=== PATIENT | male | born 1965 | race Caucasian/White ===

== ENCOUNTER 2021-10-18 14:14 | Outpatient (CLI) | payer BC ==
[2021-10-18 22:29] LABS: SARS-CoV-2 PCR by NAA Not Detected (NotDetected)
== END 2021-10-18 14:15 | disposition home or self-care (01) ==
LOC: LABBT 14:14
PROVIDERS: ATTEND Urology
DX: Z01.812 Encounter for preprocedural laboratory examination (principal); Z20.822 Contact with and (suspected) exposure to COVID-19; N20.2 Calculus of kidney with calculus of ureter
CPT/HCPCS: U0003; U0005

== ENCOUNTER 2021-10-19 09:19 | Day surgery (SDC) | payer BC ==
[2021-10-18 14:03] VITALS: BMI 32.5
[2021-10-19] MEDS ORDERED: Levofloxacin 500 mg/D5W 100 ml Premix Bag ONE (09:38)
[2021-10-19] MEDS ORDERED: Iothalamate Meglumine 60% 50 ML VIAL FS ONE (11:05)
[2021-10-19] MEDS ORDERED: Fentanyl 100 MCG/2 ML VIAL ONE ×2 (11:08→12:27)
[2021-10-19] MEDS ORDERED: Lidocaine 1% PF 5 ML VIAL ONE (11:18)
[2021-10-19] MEDS ORDERED: Ondansetron PF 4 MG/2 ML Vial ONE (11:18)
[2021-10-19] MEDS ORDERED: PROPOFOL 200 MG/20 ML VIAL ONE (11:18)
[2021-10-19] MEDS ORDERED: Dexamethasone 20 MG/5 ML VIAL ONE (11:18)
[2021-10-19] MEDS ORDERED: Ketorolac Tromethamine 30 MG/ML VIAL ONE (12:07)
[2021-10-19] MEDS ORDERED: Phenazopyridine HCl 100 MG TAB ONE (12:07)
[2021-10-19] MEDS ORDERED: Oxybutynin 5 MG TAB ONE (12:07)
[2021-10-25 16:12] LABS: CA Oxalate Dihydrate 10 % (.); CA Oxalate Monohydrate 20 % (.); Color Tan (.); Stone Weight 38 mg (.)
== END 2021-10-19 13:58 | disposition home or self-care (01) ==
LOC: SDC 09:19
PROVIDERS: ATTEND Urology
PROC: 0TC68ZZ Extirpation of Matter from Right Ureter, Via Natural or Artificial Opening Endoscopic (ICD-10-PCS; principal; 2021-10-19)
PROC: 0T768DZ Dilation of Right Ureter with Intraluminal Device, Via Natural or Artificial Opening Endoscopic (ICD-10-PCS; principal; 2021-10-19)
PROC: 0TC38ZZ Extirpation of Matter from Right Kidney Pelvis, Via Natural or Artificial Opening Endoscopic (ICD-10-PCS; principal; 2021-10-19)
DX: N13.2 Hydronephrosis with renal and ureteral calculous obstruction (principal); Z79.82 Long term (current) use of aspirin; Z79.899 Other long term (current) drug therapy
CPT/HCPCS: 74420; 82365; 88300; C2617; J1100; J1885; J1956; J2405; J2704; J3010; Q9961-U8

== ENCOUNTER 2021-12-01 08:43 | Outpatient (CLI) | payer BC | END 2021-12-01 08:44 | disposition home or self-care (01) | LOC: BICULT 08:43 | PROVIDERS: ATTEND Urology | DX: N20.2 Calculus of kidney with calculus of ureter (principal); N28.9 Disorder of kidney and ureter, unspecified | CPT/HCPCS: 76770 ==